=== PATIENT | female | born 1960 | race Caucasian/White ===

== ENCOUNTER → 2017-06-02 | Outpatient (CLI) | payer OTHER ==
--- NOTE | 2017-06-02 17:24 | RAD ---
DATE: 06/02/2017 EXAM: MAMMO ISMAEL SCREENING BILATERAL HISTORY: Screening mammogram COMPARISON: Screening mammogram 05/20/2016 The breast parenchyma is heterogeneously dense, which could reduce sensitivity of mammography. Breast parenchyma level C. FINDINGS: Bilateral digital 2D and 3D tomosynthesis CC and MLO views. No suspicious mass, calcification or architectural distortion in either breast. No significant change from prior examination . IMPRESSION: No mammographic evidence to suggest malignancy. BI-RADS 1, negative. Recommend routine screening mammogram in 12 months. BI-RADS CATEGORY: 1 NEGATIVE RECOMMENDED FOLLOW-UP: 12M 12 MONTH FOLLOW-UP PQRS compliance statement: Patient information was entered into a reminder system with a target due date June 2018 for the next mammogram. Mammography is a sensitive method for finding small breast cancers, but it does not detect them all and is not a substitute for careful clinical examination. A negative mammogram does not negate a clinically suspicious finding and should not result in delay in biopsying a clinically suspicious abnormality. "Our facility is accredited by the [employer] Mammography [employer]."
== END | disposition home or self-care (01) ==
LOC: KCIC MAMMO 07:46
PROVIDERS: ATTEND Obstetrics & Gynecology
DX: Z12.31 Encounter for screening mammogram for malignant neoplasm of breast (principal)
CPT/HCPCS: 77063; G0202; 77067

== ENCOUNTER → 2018-06-09 | Outpatient (CLI) | payer OTHER | END | disposition home or self-care (01) | LOC: KCIC MAMMO 07:48 | DX: Z12.31 Encounter for screening mammogram for malignant neoplasm of breast (principal) | CPT/HCPCS: 77063; 77067 ==

== ENCOUNTER → 2018-06-27 | Outpatient (CLI) | payer OTHER ==
--- NOTE | 2018-06-27 10:26 | KCIC ---
Right breast ultrasound: Reason for examination: density on screening mammogram. Comparison is made to mammographic exam dated 06/09/2018. Ultrasound examination was performed with attention to the area of mammographic concern in the upper outer quadrant and at the right axilla. At the 10:00 position 6 cm from the nipple, there is a small 3.7 mm fibrocystic lesion. At the 9:30 position 6 cm from the nipple, there is a 4.9 mm focus of nodular fibrocystic change. No other cystic or solid lesions are seen. No abnormal appearing lymph nodes are seen in the axilla. IMPRESSION: Small fibrocystic lesions at the 9:30 and 10:00 positions which have benign appearances. No suspicious-appearing lesions are seen in the right breast. Recommend reevaluation in 6 months with mammograms and ultrasound examination of the right breast. BI-RADS Category 3: Probably Benign. "Our facility is accredited by the [employer]ammography [employer]." This patient's information has been entered into a reminder system for the patient to be notified with the results of her examination and a target date for the next mammogram. Electronically signed by: Catalina Thomason MD (06/27/2018 10:23 AM) [id number]
== END | disposition home or self-care (01) ==
LOC: KCIC US 07:57
PROVIDERS: ATTEND Obstetrics & Gynecology
DX: R92.8 Other abnormal and inconclusive findings on diagnostic imaging of breast (principal)
CPT/HCPCS: 76641

== ENCOUNTER → 2018-12-29 | Outpatient (CLI) | payer OTHER ==
--- NOTE | 2018-12-29 11:11 | KCIC ---
Right breast diagnostic digital mammograms with 3-D tomosynthesis: Reason for examination: Follow-up nodules. Comparison is made to previous study dated 06/09/2018 and 06/02/2017 Right breast mammograms in CC and oblique projections were obtained with 2-D imaging and 3-D tomosynthesis imaging on a Siemens Inspiration unit and reviewed on the workstation. Interpretation was made with the benefit of CAD. The skin and nipple show no abnormalities. No abnormal axillary lymph nodes are seen. The breast parenchyma is heterogeneously dense. (Breast density: Category C.) There continues to be some nodularity posterior laterally in the right breast seen best on CC view probably at the 9:00 to 10:00 position. There are no other new dominant masses, suspicious calcifications or architectural distortion. Impression: Persistent nodularity posterior laterally at the 9:00 to 10:00 position of the right breast. Ultrasound to follow. Your patient's mammogram demonstrates that she has dense breast tissue (breast density category C or D), which could hide abnormalities, and if she has other risk factors for breast cancer that have been identified, she might benefit from supplemental screening tests that may be suggested by you as her ordering physician. Dense breast tissue, in and of itself, is a relatively common condition. Therefore, this information is not provided to cause undue concern, but rather to raise your awareness and to promote discussion with your patient regarding the presence of other risk factors, in addition to dense breast tissue. Your patient's mammography results will be sent to her. BI-RAD Category 0: Incomplete. Needs additional imaging evaluation. Right breast ultrasound: Comparison is made to previous study dated 06/27/2018. Ultrasound examination was performed in the areas of mammographic concern and axilla. There are 2 small hypoechoic fibrocystic type lesions at the 9:30 position 6 cm from the nipple with the largest measuring 5.3 mm in greatest dimension. In the 9:00 position, there are some minimal fibrocystic changes and ductal ectasia. In the 10:00 position 6 cm from the nipple, there is a small 3.8 mm hypoechoic fibrocystic lesion. No suspicious-appearing lesions are seen. No abnormal appearing lymph nodes are seen in the right axilla. IMPRESSION: Benign-appearing ductal dilatation and fibrocystic changes with no suspicious lesion seen. Recommend reevaluation with 6 month ultrasound. BI-RADS Category 3: Probably Benign. "Our facility is accredited by the [employer] Mammography [employer]." This patient's information has been entered into a reminder system for the patient to be notified with the results of her examination and a target date for the next mammogram. Electronically signed by: Catalina Thomason MD (12/29/2018 11:08 AM) [id number]
== END | disposition home or self-care (01) ==
LOC: KCIC MAMMO 08:05
PROVIDERS: ATTEND Obstetrics & Gynecology
DX: N64.89 Other specified disorders of breast (principal); N60.41 Mammary duct ectasia of right breast
CPT/HCPCS: 76641; 77065; G0279; 77061

== ENCOUNTER → 2019-06-29 | Outpatient (CLI) | payer OTHER ==
--- NOTE | 2019-06-29 10:42 | KCIC ---
EXAM: Bilateral digital diagnostic mammogram with tomosynthesis; right breast sonogram. HISTORY: 58-year-old female presents for follow-up evaluation of suspected benign lesions within the right breast demonstrated on a sonogram dated 12/29/2018. The patient is due for bilateral mammography. TECHNIQUE: Full-field digital craniocaudal and mediolateral oblique 2D and 3D tomosynthesis images of both breasts are obtained for evaluation. Computer aided detection with Jam[employer] software version 9.3 was applied. Sonographic imaging of the right breast including all 4 quadrants and the retroareolar joint was performed. COMPARISON: Sonograms dated 12/29/2018 and 06/27/2018 and mammograms dated 12/29/2017 and 06/09/2018. BREAST PARENCHYMAL DENSITY: Level C - Heterogeneously dense. FINDINGS: There is no new suspicious mass, microcalcification or region of architectural distortion. There is stable areas of nodularity within both breasts. Sonographic imaging of the right breast demonstrates a hypoechoic lesion at the 9:30 position 2 cm from the nipple measuring 6.6 mm in maximum dimension. This appears minimally increased compared to the prior study, a component of which is due to differences in imaging and measurement technique. There is a similar-appearing hypoechoic lesion more superficial to this location measuring 2.8 mm in maximum dimension, similar compared to the prior study. There is a 3.5 mm cyst at the 10:00 position 6 cm from the nipple. This is not significantly changed. No new lesion is seen. IMPRESSION: 1. Small hypoechoic lesions within the 9:30 position of the right breast, the larger of which measures 6 mm and may be minimally increased in size due to differences in imaging and measurement technique. The imaging appearance favors benign fibrocystic lesions The smaller lesion as well as a suspected cyst at the 10:00 position are not appreciably changed. No new lesion is seen. 2. No new suspicious mammographic finding. 3. BI-RADS Category 3: Probably benign finding(s). Repeat short-term follow-up with a right breast sonogram in 6 months is recommended to confirm longer-term stability. If your mammogram demonstrates that you have dense breast tissue, which could hide abnormalities, and if you have other risk factors for breast cancer that have been identified, you might benefit from supplemental screening tests that may be suggested by your ordering physician. Dense breast tissue, in and of itself, is a relatively common condition. This information is not provided to cause undue concern, but rather to raise your awareness and to promote discussion with your physician regarding the presence of other risk factors, in addition to dense breast tissue. A report of your mammography results will be sent to you and your physician. You should contact your physician if you have any questions or concerns regarding this report. Mammography is a sensitive method for finding small breast cancers, but it does not detect them all and is not a substitute for careful clinical examination. A negative mammogram does not negate a clinically suspicious finding and should not result in delay in biopsying a clinically suspicious abnormality. PQRS compliance statement - Patient information was entered into a reminder system with a target due date for the next mammogram. "Our facility is accredited by the [employer] Mammography [employer]." Electronically signed by: Natalya Prieto MD (06/29/2019 10:39 AM) [facility]
== END | disposition home or self-care (01) ==
LOC: KCIC MAMMO 09:29
PROVIDERS: ATTEND Obstetrics & Gynecology
DX: R92.8 Other abnormal and inconclusive findings on diagnostic imaging of breast (principal); N64.89 Other specified disorders of breast
CPT/HCPCS: 76641; 77066; G0279; 77062

== ENCOUNTER → 2020-06-06 | Outpatient (CLI) | payer OTHER ==
--- NOTE | 2020-06-06 14:25 | KCIC ---
Bilateral diagnostic digital mammograms with 3-D tomosynthesis: Reason for examination: Follow-up fibrocystic changes in the right breast. Routine screening of the left breast. Comparison is made to previous studies dated back to 05/20/2016. Bilateral mammograms in CC and oblique projections were obtained with 2-D imaging and 3-D tomosynthesis imaging on a Siemens Inspiration unit and reviewed on the workstation. Interpretation was made with the benefit of CAD. The skin and nipples show no abnormalities. No abnormal axillary lymph nodes are seen. The breast parenchyma is heterogeneously dense. (Breast density: Category C.) There is some nodularity anterior medially in the right breast seen on cc view. There continues to be some parenchymal asymmetry in the left axillary tail of [place] which is stable. There are no other dominant masses, suspicious calcifications or architectural distortion. Impression: Small nodule in the medial right breast anteriorly. Ultrasound to follow. Your patient's mammogram demonstrates that she has dense breast tissue (breast density category C or D), which could hide abnormalities, and if she has other risk factors for breast cancer that have been identified, she might benefit from supplemental screening tests that may be suggested by you as her ordering physician. Dense breast tissue, in and of itself, is a relatively common condition. Therefore, this information is not provided to cause undue concern, but rather to raise your awareness and to promote discussion with your patient regarding the presence of other risk factors, in addition to dense breast tissue. Your patient's mammography results will be sent to her. BI-RAD Category 0: Incomplete. Needs additional imaging evaluation. Right breast ultrasound: Comparison is made to previous examinations dated 06/29/2019 and 12/29/2018. Ultrasound examination of the right breast and axilla was performed. At the 2:30 position 2 cm from the nipple, there is a small 3.4 mm hypoechoic fibrocystic type lesion which has benign appearance. At the 9:30 position 2 cm from the nipple, there is a small fibrocystic type lesion measuring 2.7 mm in greatest dimension which appears to be decreased in size. At the 10:00 position 6 cm from the nipple, there is a hypoechoic circumscribed lesion in parallel orientation measuring 6.4 mm in greatest dimension with a benign fibrocystic appearance. No suspicious-appearing nodules are seen. No abnormal appearing lymph nodes are seen in the axilla. IMPRESSION: Benign-appearing fibrocystic type lesions at the 2:30, 9:30 and 10:00 positions. Recommend continued 6 month sonographic follow-up. BI-RADS Category 3: Probably Benign. "Our facility is accredited by the [employer] Mammography [employer]." This patient's information has been entered into a reminder system for the patient to be notified with the results of her examination and a target date for the next mammogram. Electronically signed by: Catalina Thomason MD (06/06/2020 2:22 PM) [id number]
== END | disposition home or self-care (01) ==
LOC: KCIC MAMMO 09:07
PROVIDERS: ATTEND Obstetrics & Gynecology
DX: R92.2 Inconclusive mammogram (principal); N63.12 Unspecified lump in the right breast, upper inner quadrant; N63.11 Unspecified lump in the right breast, upper outer quadrant
CPT/HCPCS: 76641; 77066; G0279; 77062

== ENCOUNTER → 2021-01-01 | Outpatient (CLI) | payer OTHER ==
--- NOTE | 2021-01-01 15:07 | RAD ---
Examination: Limited right breast ultrasound. INDICATION: 60-year-old woman with imaging for short-term follow-up probably benign cysts in the righ t breast. COMPARISON: 06/06/2020, 06/29/2019 right breast ultrasound examinations. Bilateral diagnostic mammogram of 06/06/2020. TECHNIQUE: Grayscale ultrasound imaging of the right breast in the areas of sonographic interest was performed. FINDINGS: The previously reported 3.4 mm cyst at the right 2:30 o'clock position 2 cm from the nipple is no gloria toro seen and may have since resolved. Likewise, the previously noted 6 mm cyst at the 9:30 o'clock po sition 2 cm from the nipple has also resolved. The previous 3.5 mm cyst at the right 10:00 position 6 cm from the nipple appears well circumscribed and anechoic, consistent with a benign sonographic fin ding. An adjacent cyst is also present with similar features, resulting in an apparent bilobed 7 mm s onographically benign cluster of cysts. Sonographic survey of the right axilla revealed no adenopath y. IMPRESSION: Benign cysts in the right breast. No evidence of malignancy. BI-RADS Category 2 Benign Recommend return to routine screening. Patient entered into a reminder system with targeted due date for next mammogram. Electronically signed by: Chanda Stevenson MD (01/01/2021 3:04 PM) [id number]
== END ==
LOC: US 10:15
PROVIDERS: ATTEND Obstetrics & Gynecology
DX: N60.01 Solitary cyst of right breast (principal)
CPT/HCPCS: 76641